=== PATIENT | female | born 1980 | race Caucasian/White ===

== ENCOUNTER 2016-04-16 12:48 | Emergency (ER) | payer BC ==
[~2016-04-16] VITALS: Ht 157.5 cm; Wt 48.7 kg
[2016-04-16 13:53] LABS: HEMATOCRIT 37.8 % (36.0-46.0); MCH 29.7 PG (29.0-34.0); MCHC 34.7 G/DL (30.0-36.0); MCV 85.7 FL (83-99); PLATELET COUNT 266 K/uL (156-360); RBC DIS.WIDTH-CV 12.1 % (11.8-14.6); RBC DIS.WIDTH-SD 36.7 % (39-53); RED BLOOD COUNT 4.41 M/uL (3.80-5.20); WHITE BLOOD COUNT 7.4 K/uL (4.1-10.2)
[2016-04-16 14:01] LABS: CHLORIDE 104 mEq/L (99-109); POTASSIUM 3.9 mEq/L (3.7-5.4); SODIUM 137 mEq/L (136-147)
[2016-04-16 14:03] LABS: GLUCOSE 93 mg/dL (70-99)
[2016-04-16 14:04] LABS: D-DIMER ELISA 0.37 mg/L FEU (< 0.57)
[2016-04-16 14:05] LABS: ANION GAP 10 MEQ/L (2-14)
[2016-04-16 14:07] LABS: GFR ESTIMATE (CALCULATED) > 59 mL/min/
[2016-04-16 14:08] LABS: UREA NITROGEN (BUN) 8 mg/dL (9-23)
[2016-04-16 14:13] LABS: TROP-I INTERPRETATION NEGATIVE; TROPONIN-I < 0.01 ng/mL (0.0-0.30)
[2016-04-16 16:56] VITALS: BP 120/83
== END 2016-04-16 17:02 | disposition home or self-care (01) ==
LOC: RME 12:48 → EME 12:48 → RME 17:02
PROVIDERS: Nurse Practitioner Family
DX: R07.89 Other chest pain (principal)
CPT/HCPCS: 71020; 71275; 80048; 84484; 85027; 85379; 93005; 99281; 99284